=== PATIENT | female | born 1995 | race Caucasian/White ===

== ENCOUNTER 2019-01-04 19:55 | Emergency (ER) | payer SELFPAY ==
[~2019-01-04] VITALS: Ht 160 cm; Wt 108.9 kg
[2019-01-04 20:18] VITALS: Ht 160 cm; Wt 108.9 kg
[2019-01-04 23:21] VITALS: BP 122/74
== END 2019-01-04 23:21 | disposition home or self-care (01) ==
LOC: ED 19:55
DX: M79.10 Myalgia, unspecified site (principal); R20.2 Paresthesia of skin; M25.511 Pain in right shoulder
CPT/HCPCS: J1885

== ENCOUNTER 2019-09-10 07:22 | Emergency (ER) | payer OTHER ==
[~2019-09-10] VITALS: Ht 160 cm; Wt 84.5 kg
[2019-09-10 07:39] VITALS: Ht 160 cm; Wt 84.5 kg
[2019-09-10 08:51] LABS: UA SPECIFIC GRAVITY >=1.030 (1.005-1.035); microscopic required? YES; urine erythrocyte NEGATIVE (NEGATIVE)
[2019-09-10 10:31] VITALS: BP 136/85
== END 2019-09-10 10:46 | disposition home or self-care (01) ==
LOC: ED 07:22
DX: K61.0 Anal abscess (principal)
CPT/HCPCS: 90715; J2001

== ENCOUNTER 2019-09-13 08:55 | Emergency (ER) | payer OTHER ==
[~2019-09-13] VITALS: Ht 160 cm; Wt 85.3 kg
[2019-09-13 09:20] VITALS: Ht 160 cm; Wt 85.3 kg
[2019-09-13 11:33] VITALS: BP 128/62
== END 2019-09-13 11:33 | disposition home or self-care (01) ==
LOC: ED 08:55
DX: K61.0 Anal abscess (principal); Z48.01 Encounter for change or removal of surgical wound dressing